=== PATIENT | female | born 1960 | race Caucasian/White ===

== ENCOUNTER 2025-01-03 19:09 | Emergency (ER) | payer SELFPAY ==
[~2025-01-03] VITALS: Ht 153.7 cm; Wt 89.1 kg
[2025-01-03 19:26] VITALS: O2SAT 96
[2025-01-03] MEDS ORDERED: ACETAMINOPHEN 325MG TABLET PO ONE (20:30)
[2025-01-03 23:04] LABS: BASOPHILS % 0.5 % (0.0-2.0); EOSINOPHILS % 0.0 % (0.0-5.0); HEMATOCRIT. 40.7 % (36.0-48.0); HEMOGLOBIN. 13.6 g/dL (12.0-16.0); LYMPHOCYTES % 9.5 % (20.0-50.0); MEAN PLATELET VOLUME 9.3 fl (7.4-10.4); MONOCYTES % 11.6 % (2.0-8.0); NEUTROPHILS % 78.4 % (40.0-76.0); PLATELET 214 x1000/uL (130-400); RED BLOOD CELL COUNT 4.69 mill/uL (4.2-5.4); RED CELL DISTRIBUTION WIDTH 14.1 % (11.6-14.6)
[2025-01-03] MEDS: ACETAMINOPHEN 325MG TABLET PO SCH (23:11)
[2025-01-03 23:18] LABS: CREATININE 1.2 mg/dL (0.6-1.0); UREA NITROGEN BLOOD 16.0 mg/dL (9-23)
[2025-01-04 00:19] VITALS: BP 128/72; PULSE 73; RESP 18; TEMP 37.8; O2SAT 96
[2025-01-04 00:25] LABS: INFLUENZA TYPE A Presumptive Negative (Pres. Neg.)
[2025-01-04 00:26] LABS: INFLUENZA TYPE B Presumptive Negative (Pres. Neg.)
[2025-01-04 00:27] LABS: RESPIRATORY SYNCYTIAL VIRUS Not Detected (Not Detectd)
== END 2025-01-04 00:48 | disposition home or self-care (01) ==
LOC: ER 19:09 → CMPBEDREQ 01-04 08:31
DX: B34.9 Viral infection, unspecified (principal); R05.9 Cough, unspecified; R06.02 Shortness of breath; R51.9 Headache, unspecified; Z90.49 Acquired absence of other specified parts of digestive tract; Z20.822 Contact with and (suspected) exposure to COVID-19
CPT/HCPCS: 36415; 71045; 80048; 85025; 87420; 87426; 87804; 99284